=== PATIENT | female | born 1990 | race Caucasian/White ===

== ENCOUNTER 2018-01-25 09:37 | Emergency (ER) | payer MEDICAID ==
[~2018-01-25] VITALS: Ht 152.4 cm; Wt 57.0 kg
[~2018-01-25 09:37] MED LIST: CEPH-571 PO; CLIN300C85 PO; HYDR-569 PO; IBUP-1984 PO; MYCOL30CR TP; ONDA4TAB12 PO; PANT-47 PO
[2018-01-25 09:54] VITALS: BP 120/86
== END 2018-01-25 11:08 | disposition home or self-care (01) ==
LOC: ER 09:38
DX: B35.3 Tinea pedis (principal); K21.9 Gastro-esophageal reflux disease without esophagitis; F15.90 Other stimulant use, unspecified, uncomplicated; Z88.0 Allergy status to penicillin; Z79.2 Long term (current) use of antibiotics; Z79.899 Other long term (current) drug therapy
CPT/HCPCS: 99281

== ENCOUNTER 2019-06-19 17:31 | Emergency (ER) | payer MEDICAID ==
[~2019-06-19] VITALS: Ht 152.4 cm; Wt 69.0 kg
[~2019-06-19 17:31] MED LIST changes: +CLIN-90 PO; -CLIN300C85 PO; +HYDR-4383 PO; -HYDR-569 PO
[2019-06-19 17:33] VITALS: BP 140/82
== END 2019-06-19 17:59 | disposition home or self-care (01) ==
LOC: ER 17:32
DX: F15.90 Other stimulant use, unspecified, uncomplicated (principal); K21.9 Gastro-esophageal reflux disease without esophagitis; Z88.0 Allergy status to penicillin; Z79.2 Long term (current) use of antibiotics; Z79.899 Other long term (current) drug therapy
CPT/HCPCS: 99281

== ENCOUNTER 2019-07-21 16:55 | Emergency (ER) | payer MEDICAID ==
[~2019-07-21] VITALS: Ht 152.4 cm; Wt 62.8 kg
[~2019-07-21 16:55] MED LIST changes: -CLIN-90 PO; +CLIN-97 PO
[2019-07-21] MEDS ORDERED: normal saline 1000ML IV soln IVB ONE (17:20)
[2019-07-21] MEDS ORDERED: glucagon, human recombinant 1mg kit IV ONE (17:20)
[2019-07-21] MEDS ORDERED: meperidine/PF 25mg/ml syringe IV ONE (17:20)
[2019-07-21] MEDS ORDERED: ondansetron/PF 4mg/2ml inj IV ONE (17:25)
[2019-07-21] MEDS ORDERED: meperidine/PF 50mg/ml syringe IV ONE ×2 (17:30)
[2019-07-21 17:44] LABS: BASOPHILS # (AUTO) 0.1 X10'3 (0-0.2); BASOPHILS % (AUTO) 0.4 % (0-1); EOSINOPHILS # (AUTO) 0.3 X10'3 (0-0.9); HEMATOCRIT 46.1 % (35.0-45.0); HEMOGLOBIN 15.6 g/dl (12.0-16.0); LYMPHOCYTES # (AUTO) 2.9 X10'3 (1.1-4.8); LYMPHOCYTES % (AUTO) 16.8 % (21-51); MEAN CORPUSCULAR HGB CONC 33.8 g/dL (33.0-36.5); MEAN CORPUSCULAR VOLUME 85.8 FL (78-98); MEAN PLATELET VOLUME 7.6 FL (7.4-10.4); MONOCYTES # (AUTO) 0.8 X10'3 (0-0.9); NEUTROPHILS # (AUTO) 12.8 X10'3 (1.8-7.7); NEUTROPHILS % (AUTO) 75.8 % (42-75); PLATELET COUNT 343 X10'3 (140-440); RED BLOOD COUNT 5.37 X10'6 (4.20-5.60); RED CELL DISTRIBUTION WIDTH 13.8 % (11.5-14.5)
--- NOTE | 2019-07-21 17:45 | NUR ---
PT ON TH WAY TO GI LAB WITH CHRISTIANO, PT REFUSED AND WANTED TO GET A DRINK OF WATER. PT CURRENTY IN ROOM AND IS ABLE TO SIP ON WATER WITH NO VOMITING. PT IS CURRENTLY IN ROOM 4, JOELLE LEVY AT BEDSIDE.
[2019-07-21] MEDS ORDERED: PANT-47 PO (17:54)
[2019-07-21 18:09] LABS: ALANINE AMINOTRANSFERASE 17 U/L (12-78); ALBUMIN 4.3 G/DL (3.4-5.0); ALBUMIN/GLOBULIN RATIO 1.2 (1.1-1.5); ALKALINE PHOSPHATASE 100 IU/L (46-116); ANION GAP 9 (8-16); ASPARTATE AMINO TRANSFERASE 15 U/L (10-37); BILIRUBIN,TOTAL 0.5 MG/DL (0.1-1.0); BLOOD UREA NITROGEN 14 MG/DL (7-18); BUN/CREATININE RATIO 20.3 (6.6-38.0); CALCIUM 9.1 MG/DL (8.5-10.1); CHLORIDE 104 MMOL/L (99-107); CREATININE 0.69 MG/DL (0.40-0.90); GLUCOSE 91 MG/DL (70-104); LIPASE 93 U/L (73-393); POTASSIUM 4.4 MMOL/L (3.5-5.1); SODIUM 142 MMOL/L (135-145); TOTAL CARBON DIOXIDE 29.1 MMOL/L (24-32); TOTAL PROTEIN 7.9 G/DL (6.4-8.2); eGFR > 90 ML/MIN
[2019-07-21 18:18] LABS: PARTIAL THROMBOPLASTIN TIME 26 SECONDS (22-32)
[2019-07-21 18:45] VITALS: BP 108/68
== END 2019-07-21 18:47 | disposition home or self-care (01) ==
LOC: ER 16:56
DX: T17.228A Food in pharynx causing other injury, initial encounter (principal); K21.9 Gastro-esophageal reflux disease without esophagitis; F15.90 Other stimulant use, unspecified, uncomplicated; Z88.0 Allergy status to penicillin; Z79.2 Long term (current) use of antibiotics; Z79.899 Other long term (current) drug therapy; X58.XXXA Exposure to other specified factors, initial encounter; Y93.89 Activity, other specified; Y92.89 Other specified places as the place of occurrence of the external cause; Y99.8 Other external cause status
CPT/HCPCS: 36415; 80053; 83690; 85025; 85610; 85730; 96374; 96375; 99284; J1610; J2175; J2405; J7030

== ENCOUNTER 2019-10-08 13:11 | Emergency (ER) | payer MEDICAID ==
[~2019-10-08] VITALS: Ht 154.9 cm; Wt 59.0 kg
[2019-10-08 14:10] VITALS: BP 121/82
== END 2019-10-08 14:07 | disposition home or self-care (01) ==
LOC: ER 13:11
DX: H66.92 Otitis media, unspecified, left ear (principal); K21.9 Gastro-esophageal reflux disease without esophagitis; F15.90 Other stimulant use, unspecified, uncomplicated; Z88.0 Allergy status to penicillin; Z79.899 Other long term (current) drug therapy
CPT/HCPCS: 99281

== ENCOUNTER 2020-03-25 01:44 | Emergency (ER) | payer MEDICAID ==
[~2020-03-25] VITALS: Ht 152.4 cm; Wt 56.8 kg
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
[2020-03-25] MEDS ORDERED: ondansetron 4mg rapidly disintigrating tab PO ONE (02:25)
[2020-03-25] MEDS ORDERED: acetaminophen 325mg tablet PO ONE (02:25)
--- NOTE | 2020-03-25 02:33 | NUR ---
pt going to ct via w/c.
--- NOTE | 2020-03-25 02:49 | NUR ---
informed of pt refusing labs.
[2020-03-25] MEDS ORDERED: ONDA4TAB6 PO (03:19)
[2020-03-25 03:28] VITALS: BP 129/63
== END 2020-03-25 03:49 | disposition home or self-care (01) ==
LOC: ER 01:45
DX: S00.03XA Contusion of scalp, initial encounter (principal); S06.0X0A Concussion without loss of consciousness, initial encounter; S00.83XA Contusion of other part of head, initial encounter; F15.10 Other stimulant abuse, uncomplicated; K21.9 Gastro-esophageal reflux disease without esophagitis; Z79.899 Other long term (current) drug therapy; Y08.89XA Assault by other specified means, initial encounter; Y93.89 Activity, other specified; Y92.89 Other specified places as the place of occurrence of the external cause; Y99.8 Other external cause status
CPT/HCPCS: 70450; 99284

== ENCOUNTER 2020-04-02 20:33 | Emergency (ER) | payer MEDICAID ==
[~2020-04-02] VITALS: Ht 152.4 cm; Wt 52.3 kg
[~2020-04-02 20:33] MED LIST changes: +ONDA4TAB6 PO
[2020-04-02] MEDS ORDERED: LIDOcaine 1% W/epiNEPHrine 1:200,000 10ml vial IJ ONE (22:25)
[2020-04-02] MEDS ORDERED: CEPH250T PO (22:28)
[2020-04-02] MEDS ORDERED: LIDOcaine 1% w/epiNEPHrine 1:200,000 30ml vial IJ ONE (22:30)
[2020-04-02] MEDS ORDERED: SULF1TAB49 PO (23:17)
[2020-04-02 23:43] VITALS: BP 114/83
== END 2020-04-02 23:47 | disposition home or self-care (01) ==
LOC: ER 20:35
DX: L02.411 Cutaneous abscess of right axilla (principal); K21.9 Gastro-esophageal reflux disease without esophagitis; Z79.899 Other long term (current) drug therapy
CPT/HCPCS: 10060; 99283

== ENCOUNTER 2020-05-24 21:18 | Emergency (ER) | payer MEDICAID ==
[~2020-05-24] VITALS: Ht 152.4 cm; Wt 59.1 kg
[2020-05-24 21:27] VITALS: BP 124/78
[2020-05-24] MEDS ORDERED: LIDOcaine 1% W/epiNEPHrine 1:200,000 10ml vial IJ ONE (21:45)
[2020-05-24] MEDS ORDERED: CefTRIAXone 250MG IM Kit w/LIDOcaine IM ONE (21:45)
[2020-05-24] MEDS ORDERED: TETanus/Pertussis (Acell)/Diphther VAC/PF (Tdap-Adult) 0.5ml syringe IMVAC ONE (21:45)
[2020-05-24] MEDS ORDERED: penicillin G benzathine 1.2 million unit/2ml syringe IM ONE (22:10)
[2020-05-24 22:29] LABS: URINE HCG NEGATIVE (NEG)
[2020-05-24 22:34] LABS: CLARITY,URINE CLEAR (Clear); COLOR,URINE YELLOW (Yellow); GLUCOSE, URINE NEGATIVE (Neg); KETONES,URINE NEGATIVE (Neg); LEUKOCYTE ESTERASE ,URINE MODERATE (Neg); NITRITES, URINE POSITIVE (Neg); OCCULT BLOOD,URINE TRACE-INTACT (Neg); PH,URINE 6.5 (4.8-8.0); PROTEIN,URINE NEGATIVE (Neg); UA COLLECTION TYPE CLN CATCH MIDSTREAM
[2020-05-24 22:36] LABS: RBC,URINE 0-2 /HPF (0-2); WBC,URINE 20-30 /HPF (0-4)
[2020-05-24 22:37] LABS: BACTERIA,URINE 4+ /HPF (Neg); MUCUS STRANDS FEW /LPF (Neg); SQUAMOUS EPITHELIAL CELL,UR MODERATE /LPF (FEW); WBC CLUMPS,URINE MANY /HPF (NEGATIVE)
--- NOTE | 2020-05-24 22:41 | NUR ---
PA at bedside explaining procedure to patient. IM injections given by RN x4 per order; each injection was aspirated prior to administering.
[2020-05-24] MEDS ORDERED: DOXY100C77 PO (22:59)
--- NOTE | 2020-05-24 23:59 | NUR ---
PATIENT FEELS I@D WAS NOT COMPLETE AND THERE IS MORE TO DRAIN, DR. PEREZ MADE AWARE STATED SHE WILL ASSESS PATIENT
== END 2020-05-25 00:29 | disposition home or self-care (01) ==
LOC: ER 21:19
DX: L02.412 Cutaneous abscess of left axilla (principal); N39.0 Urinary tract infection, site not specified; K21.9 Gastro-esophageal reflux disease without esophagitis; Z79.2 Long term (current) use of antibiotics; Z79.899 Other long term (current) drug therapy
CPT/HCPCS: 10060; 36415; 81001; 81025; 86592; 87077; 87088; 87186; 87491; 87591; 90471; 90715; 96372; 99284; J0561; J0696

== ENCOUNTER 2020-10-07 18:06 | Emergency (ER) | payer MEDICAID ==
[~2020-10-07] VITALS: Ht 154.9 cm; Wt 54.5 kg
[2020-10-07 18:16] VITALS: BP 120/79
== END 2020-10-07 20:35 | disposition left against medical advice (07) ==
LOC: ER 18:09
DX: M79.10 Myalgia, unspecified site (principal); Z53.21 Procedure and treatment not carried out due to patient leaving prior to being seen by health care provider

== ENCOUNTER 2022-01-15 21:31 | Emergency (ER) | payer MEDICAID ==
[~2022-01-15] VITALS: Ht 152.4 cm; Wt 54.5 kg
[~2022-01-15 21:31] MED LIST changes: -MYCOL30CR TP; +NYST30CR35 TP
[2022-01-15] MEDS ORDERED: TETanus/Pertussis (Acell)/Diphther VAC/PF (Tdap-Adult) 0.5ml syringe IMVAC ONE (23:20)
[2022-01-15] MEDS ORDERED: sulfamethoxazole/trimethoprim DS (800/160mg) tablet PO ONE (23:30)
[2022-01-15] MEDS ORDERED: SULF1TAB49 PO (23:35)
[2022-01-15 23:50] VITALS: BP 118/81
== END 2022-01-16 00:03 | disposition home or self-care (01) ==
LOC: ER 21:32
DX: L03.116 Cellulitis of left lower limb (principal); M79.662 Pain in left lower leg; K21.9 Gastro-esophageal reflux disease without esophagitis; F12.90 Cannabis use, unspecified, uncomplicated; Z79.2 Long term (current) use of antibiotics; Z79.899 Other long term (current) drug therapy
CPT/HCPCS: 87070; 87077; 87186; 90471; 90715; 99283

== ENCOUNTER 2022-06-03 15:10 | Emergency (ER) | payer MEDICAID ==
[~2022-06-03] VITALS: Ht 152.4 cm; Wt 54.5 kg
[2022-06-03 16:00] LABS: URINE HCG NEGATIVE (NEG)
[2022-06-03 16:07] LABS: CLARITY,URINE CLOUDY (Clear); COLOR,URINE YELLOW (Yellow); GLUCOSE, URINE NEGATIVE (Neg); KETONES,URINE NEGATIVE (Neg); LEUKOCYTE ESTERASE ,URINE LARGE (Neg); NITRITES, URINE POSITIVE (Neg); OCCULT BLOOD,URINE SMALL (Neg); PROTEIN,URINE TRACE mg/dl (Neg); UROBILINOGEN,URINE 0.2 E.U/dL (0.2-1.0)
[2022-06-03 16:08] LABS: BASOPHILS % (AUTO) 0.3 % (0-1); EOSINOPHILS # (AUTO) 0.3 X10'3 (0-0.9); EOSINOPHILS % (AUTO) 2.5 % (0-6); HEMATOCRIT 39.5 % (35.0-45.0); HEMOGLOBIN 13.3 g/dl (12.0-16.0); LYMPHOCYTES # (AUTO) 1.5 X10'3 (1.1-4.8); LYMPHOCYTES % (AUTO) 13.4 % (21-51); MEAN CORPUSCULAR HEMOGLOBIN 29.8 PG (27.0-31.0); MEAN CORPUSCULAR HGB CONC 33.6 g/dL (33.0-36.5); MEAN CORPUSCULAR VOLUME 88.5 FL (78-98); MEAN PLATELET VOLUME 7.9 FL (7.4-10.4); MONOCYTES # (AUTO) 0.7 X10'3 (0-0.9); MONOCYTES % (AUTO) 6.2 % (2-12); NEUTROPHILS # (AUTO) 8.7 X10'3 (1.8-7.7); NEUTROPHILS % (AUTO) 77.6 % (42-75); PLATELET COUNT 245 X10'3 (140-440); RED BLOOD COUNT 4.47 X10'6 (4.20-5.60); RED CELL DISTRIBUTION WIDTH 13.3 % (11.5-14.5); WHITE BLOOD COUNT 11.3 X10'3 (4.5-11.0)
[2022-06-03 16:11] LABS: UA COLLECTION TYPE CLN CATCH MIDSTREAM
[2022-06-03 16:11] LABS: ALANINE AMINOTRANSFERASE 27 U/L (12-78); ALBUMIN 3.6 G/DL (3.4-5.0); ALBUMIN/GLOBULIN RATIO 1.1 (1.1-1.5); ALKALINE PHOSPHATASE 85 IU/L (46-116); ANION GAP 3 (8-16); ASPARTATE AMINO TRANSFERASE 25 U/L (10-37); BILIRUBIN,TOTAL 0.4 MG/DL (0.1-1.0); BLOOD UREA NITROGEN 8 MG/DL (7-18); BUN/CREATININE RATIO 12.3 (6.6-38.0); CALCIUM 8.4 MG/DL (8.5-10.1); CHLORIDE 100 MMOL/L (99-107); CREATININE 0.65 MG/DL (0.40-0.90); GLUCOSE 103 MG/DL (70-104); LIPASE 142 U/L (73-393); POTASSIUM 3.2 MMOL/L (3.5-5.1); SODIUM 134 MMOL/L (135-145); TOTAL CARBON DIOXIDE 30.7 MMOL/L (24-32); TOTAL PROTEIN 6.8 G/DL (6.4-8.2); eGFR > 90 ML/MIN
[2022-06-03 16:13] LABS: BACTERIA,URINE 4+ /HPF (Neg); MUCUS STRANDS NONE SEEN /LPF (Neg); SQUAMOUS EPITHELIAL CELL,UR MODERATE /LPF (FEW); WBC,URINE TNTC /HPF (0-4)
[2022-06-03] MEDS ORDERED: CefTRIAXone/D5W-Rocephin 1gm 50 ML IV ONE (16:35)
[2022-06-03] MEDS ORDERED: ondansetron/PF 4mg/2ml inj IV ONE (16:35)
[2022-06-03] MEDS ORDERED: ketorolac trometh. 30mg/ml inj. IV ONE (16:35)
[2022-06-03] MEDS ORDERED: normal saline 1000ml 1,000 ML IV ONE (16:35)
[2022-06-03] MEDS ORDERED: CEFD300C3 PO (18:12)
[2022-06-03] MEDS ORDERED: PENICILLIN G BENZATHINE 2,400,000 UNIT/4 ML SYRINGE IM STA (18:15)
[2022-06-03 19:18] VITALS: BP 128/71
== END 2022-06-03 19:19 | disposition home or self-care (01) ==
LOC: ER 15:11
DX: N10 Acute pyelonephritis (principal); M54.50 Low back pain, unspecified; R10.84 Generalized abdominal pain; K21.9 Gastro-esophageal reflux disease without esophagitis; F15.90 Other stimulant use, unspecified, uncomplicated; Z56.0 Unemployment, unspecified; Z79.2 Long term (current) use of antibiotics; Z79.899 Other long term (current) drug therapy
CPT/HCPCS: 36415; 80053; 81001; 81025; 83690; 85025; 87077; 87088; 87186; 96361; 96365; 96372; 96375; 99284; J0561; J0696; J1885; J2405; J7030; 86780

== ENCOUNTER 2022-09-17 05:38 | Emergency (ER) | payer MEDICAID ==
[~2022-09-17] VITALS: Ht 152.4 cm; Wt 53.4 kg
[2022-09-17 06:04] VITALS: BP 126/86
[2022-09-17] MEDS ORDERED: CIPR10DR RIGHT EAR (07:02)
== END 2022-09-17 07:09 | disposition home or self-care (01) ==
LOC: ER 05:38
DX: H60.91 Unspecified otitis externa, right ear (principal); L02.414 Cutaneous abscess of left upper limb; K21.9 Gastro-esophageal reflux disease without esophagitis; F15.20 Other stimulant dependence, uncomplicated; Z56.0 Unemployment, unspecified
CPT/HCPCS: 99283

== ENCOUNTER 2023-01-22 19:48 | Emergency (ER) | payer MEDICAID ==
[~2023-01-22] VITALS: Ht 152.4 cm; Wt 54.5 kg
[2023-01-22 20:22] VITALS: BP 115/82; PULSE 98; RESP 14; O2SAT 97
[2023-01-22] MEDS ORDERED: ibuprofen tablet 400 MG TABLET PO ONE (22:35)
[2023-01-22] MEDS ORDERED: sulfamethoxazole/trimethoprim DS (800/160mg) tablet PO ONE (22:35)
[2023-01-22] MEDS ORDERED: cephalexin 250mg capsule PO ONE (22:35)
[2023-01-22] MEDS ORDERED: LIDOcaine 1% W/epiNEPHrine 1:100,000 20ml vial IJ ONE (22:40)
[2023-01-23] MEDS ORDERED: SULF1TAB45 PO (00:38)
[2023-01-23] MEDS ORDERED: CEPH-585 PO (00:38)
[2023-01-23 01:17] VITALS: TEMP 98.4
== END 2023-01-23 01:19 | disposition home or self-care (01) ==
LOC: ER 19:48
DX: L02.212 Cutaneous abscess of back [any part, except buttock and flank] (principal); K21.9 Gastro-esophageal reflux disease without esophagitis; F15.10 Other stimulant abuse, uncomplicated; Z79.899 Other long term (current) drug therapy
CPT/HCPCS: 10060; 99284; A6407; A6449

== ENCOUNTER 2023-02-08 03:28 | Emergency (ER) | payer MEDICAID ==
[~2023-02-08] VITALS: Ht 154.9 cm; Wt 54.5 kg
[~2023-02-08 03:28] MED LIST changes: +CEPH-585 PO; +SULF1TAB45 PO
[2023-02-08 03:35] VITALS: TEMP 98.1
[2023-02-08] MEDS ORDERED: ketamine 10mg/ml 20ml inj vial IM ONE (04:00)
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
[2023-02-08] MEDS ORDERED: normal saline 1000ml 1,000 ML IV ONE (05:45)
[2023-02-08] MEDS ORDERED: iohexol 350MG/ML 100ml bottle IV ONE (06:08)
[2023-02-08] MEDS ORDERED: CEPH-585 PO (10:49)
[2023-02-08 11:37] VITALS: BP 141/90; PULSE 82; RESP 17; O2SAT 100
== END 2023-02-08 11:38 | disposition home or self-care (01) ==
LOC: ER 03:29
DX: S61.412A Laceration without foreign body of left hand, initial encounter (principal); K21.9 Gastro-esophageal reflux disease without esophagitis; F15.10 Other stimulant abuse, uncomplicated; Z56.0 Unemployment, unspecified; W19.XXXA Unspecified fall, initial encounter; Y93.89 Activity, other specified; Y92.89 Other specified places as the place of occurrence of the external cause; Y99.8 Other external cause status
CPT/HCPCS: 12001; 73130; 99152; 99153; 99285; J3490; J7030; 94760; Q9967

== ENCOUNTER 2023-12-09 19:39 | Emergency (ER) | payer MEDICAID ==
[~2023-12-09] VITALS: Ht 152.4 cm; Wt 55.5 kg
[~2023-12-09 19:39] MED LIST changes: +ONDA-243 PO; -ONDA4TAB12 PO; -SULF1TAB45 PO
[2023-12-09] MEDS: glucagon, human recombinant 1mg kit IV ONE (21:02)
[2023-12-09 22:10] VITALS: BP 135/91; PULSE 74; RESP 16
[2023-12-09] MEDS ORDERED: LIDOcaine 2% Viscous 15ml cup ONE (22:16)
[2023-12-09] MEDS ORDERED: fentaNYL/PF 50MCG/1 ML 2ML syringe ONE ×2 (22:16→22:44)
[2023-12-09] MEDS ORDERED: MIDAZolam 1 MG/ML 5ML VIAL ONE ×2 (22:16→22:45)
[2023-12-09 22:54] VITALS: BP 135/89; PULSE 89; RESP 16; O2SAT 100
[2023-12-09 23:04] VITALS: BP 124/88; PULSE 91; RESP 14; O2SAT 98
[2023-12-09 23:14] VITALS: BP 135/90; PULSE 88; RESP 16; O2SAT 98
[2023-12-09 23:24] VITALS: BP 128/91; PULSE 89; RESP 16; O2SAT 99
[2023-12-10] MEDS ORDERED: PANT-47 PO (00:51)
[2023-12-10 01:16] VITALS: BP 135/93; PULSE 79; RESP 17; TEMP 97.8; O2SAT 100
== END 2023-12-10 01:18 | disposition still patient (30) ==
LOC: ER 19:40
DX: T18.128A Food in esophagus causing other injury, initial encounter (principal); K22.2 Esophageal obstruction; K21.9 Gastro-esophageal reflux disease without esophagitis; F15.90 Other stimulant use, unspecified, uncomplicated; Z56.0 Unemployment, unspecified; W44.F3XA Food entering into or through a natural orifice, initial encounter; Y93.89 Activity, other specified; Y92.89 Other specified places as the place of occurrence of the external cause; Y99.8 Other external cause status
CPT/HCPCS: 43239; 43247; 96374; 99285; J1610; J2250; J3010; J7030; Z7512; 99152; A4620; C1889